=== PATIENT | female | born 1950 | race Caucasian/White ===

== ENCOUNTER 2020-04-11 14:03 | Outpatient (RCR) | payer MEDICARE | END 2020-04-13 | LOC: OT 14:03 | PROVIDERS: ATTEND Specialist | DX: M24.612 Ankylosis, left shoulder (principal); M77.8 Other enthesopathies, not elsewhere classified ==

== ENCOUNTER 2020-05-10 10:55 | Outpatient (RCR) | payer MEDICARE | END 2020-05-14 | LOC: OT 10:55 | PROVIDERS: ATTEND Specialist | DX: M24.612 Ankylosis, left shoulder (principal) ==